=== PATIENT | male | born 1955 | race Caucasian/White ===

== ENCOUNTER 2018-06-29 08:59 | Day surgery (SDC) | payer BC, OTHER ==
[2018-06-27 15:19] LABS: EOSINOPHILS # (AUTO) 0.3 K/uL (0.0-0.4); EOSINOPHILS % (AUTO) 5.5 % (0.0-4.0); HEMATOCRIT 44.1 % (36-54); LYMPHOCYTES # (AUTO) 1.6 K/uL (1.0-5.5); LYMPHOCYTES % (AUTO) 28.8 % (20.5-51.5); MEAN CORPUSCULAR HEMOGLOBIN 31 pg (27-31); MEAN CORPUSCULAR HGB CONC 34 % (32-36); MEAN CORPUSCULAR VOLUME 90 fL (79.0-98.0); MONOCYTES # (AUTO) 0.4 K/uL (0.0-1.0); MONOCYTES % (AUTO) 7.5 % (1.7-9.3); PLATELET COUNT (AUTO) 255 K/uL (130-430); RED BLOOD CELL COUNT(AUTO) 4.91 MIL/uL (4.2-6.2); RED CELL DISTRIBUTION WIDTH 14.1 % (9.0-15.0); WHITE BLOOD COUNT (AUTO) 5.7 K/uL (4.8-10.8)
[2018-06-27 15:29] LABS: BASOPHILS % (AUTO) 0.7 % (0.0-2.0); NEUTROPHILS # (AUTO) 3.4 K/uL (1.8-7.7); NEUTROPHILS % (AUTO) 57.5 % (40.0-70.0)
[2018-06-27 15:36] LABS: BILIRUBIN,URINE NEGATIVE (NEGATIVE); BLOOD, URINE NEGATIVE (NEGATIVE); CLARITY/URINE CLEAR (CLEAR); COLOR,URINE YELLOW (YELLOW); GLUCOSE,URINE NEGATIVE (NEGATIVE); INR 0.9 (0.80-1.20); KETONES,URINE NEGATIVE (NEGATIVE); LEUKOCYTE ESTERASE ,URINE NEGATIVE (NEGATIVE); NITRITE, URINE NEGATIVE (NEGATIVE); PROTEIN URINE 2+ (NEGATIVE); PROTHROMBIN TIME 9.3 SECS (9.5-12.5)
[2018-06-27 15:39] LABS: ALBUMIN 3.9 g/dL (3.4-4.8); BACTERIA,URINE RARE /HPF (None Seen); CALCIUM 9.7 mg/dL (8.4-11.0); CREATININE 1.14 mg/dL (0.55-1.30); RBC,URINE 0-3 /HPF (0-3); TOTAL BILIRUBIN 0.9 mg/dL (0.0-1.0); WBC,URINE 0-3 /HPF (0-3)
[2018-06-27 15:45] LABS: POTASSIUM 3.8 mmol/L (3.5-5.1)
[~2018-06-29] VITALS: Ht 185.4 cm; Wt 111.1 kg
[~2018-06-29 08:59] MED LIST: ASPI-524 PO; FENO145T PO; FURO-149 PO; LOSA1TAB37 PO; OMEP20CA4 PO; SIMV40TA2 PO
[2018-06-29] MEDS ORDERED: ONDANSETRON HCL 4 MG/2 ML VIAL IVP PRN (10:15)
[2018-06-29] MEDS ORDERED: fentaNYL CITRATE/PF 100 MCG/2 ML AMP IVP PRN ×2 (10:15)
[2018-06-29] MEDS ORDERED: KETOROLAC TROMETHAMINE 30 MG VIAL IVP PRN (10:15)
[2018-06-29] MEDS ORDERED: LR 1,000 ML IV.SOLN IV ONE (11:15)
[2018-06-29] MEDS ORDERED: MIDAZOLAM HCL 5 MG/ML VIAL (VERSED) IV ONE (11:15)
[2018-06-29] MEDS ORDERED: PROPOFOL 200MG/ 20ML VIAL (DIPRIVAN) IV ONE (11:15)
[2018-06-29] MEDS ORDERED: LIDOCAINE 1% 10 MG/ML, 20 ML MDV ONE (11:15)
[2018-06-29] MEDS ORDERED: ONDANSETRON HCL 4 MG/2 ML VIAL ONE (11:15)
[2018-06-29] MEDS ORDERED: KETOROLAC TROMETHAMINE 30 MG VIAL ONE (11:15)
[2018-06-29] MEDS ORDERED: BUPIVACAINE /EPINEPHRINE/PF 0.25% 30 ML VIAL INJ ONE (11:15)
[2018-06-29] MEDS ORDERED: NS IRRIG SOLN 1000 ML IR ONE (11:15)
[2018-06-29 12:11] VITALS: BP_SYST 143
== END 2018-06-29 13:10 | disposition home or self-care (01) ==
LOC: SDS 08:59 → SMU 09:00 → SDS 13:10
PROVIDERS: ATTEND Orthopaedic Surgery
DX: M67.431 Ganglion, right wrist (principal); Z79.899 Other long term (current) drug therapy; Z79.82 Long term (current) use of aspirin; I10 Essential (primary) hypertension; Z79.01 Long term (current) use of anticoagulants
CPT/HCPCS: 25111; 36415; 71046; 80053; 81000; 85025; 85610; 85730; 88304; 93005; J1885; J2001; J2250; J2405; J2704; J3490; J7120

== ENCOUNTER 2019-10-16 09:52 | Inpatient (IN) | payer BC, SELFPAY ==
[~2019-10-16] VITALS: Ht 185.4 cm; Wt 113.4 kg
[2019-10-16 09:52] VITALS: BP_SYST 151
--- NOTE | 2019-10-16 09:52 | NUR ---
Placed in room 3. Placed on cardiac rehab nurse, blood pressure machine and pulse oximeter. To gown for exam. Side rails up. Report given to MOE Arceo.
--- NOTE | 2019-10-16 10:00 | NUR ---
Patient presented to ER C/O Chest pain. Patient A&Ox4, ambulatory to ER chest pain 3/, nausea, diarrhea, denies emesis. Patient states he has chest pain today, diarrhea x3 days and hx of ME 6 years ago. Patient placed on monitor, EKG completed at , chest shaved for EKG, placed on typesetting supervisor & pulse-ox monitor. will continue to monitor
--- NOTE | 2019-10-16 10:05 | NUR ---
ISHAN Griffin at bedside examining patient.
[2019-10-16] MEDS ORDERED: ONDANSETRON HCL 4 MG/2 ML VIAL IVP ONE (10:15)
[2019-10-16] MEDS ORDERED: LOPERAMIDE HCL 2 MG CAPSULE PO ONE (10:15)
[2019-10-16] MEDS ORDERED: MORPHINE 4 MG/ML INJ. SYRINGE IVP ONE (10:15)
[2019-10-16] MEDS ORDERED: ASPIRIN 325 MG TABLET (ECOTRIN) PO ONE ×2 (10:15→10:59)
[2019-10-16] MEDS ORDERED: NACL 0.9% 1,000 ML IV ONE ×2 (10:15→14:15)
[2019-10-16 11:01] LABS: ANION GAP 7 (5-15); CALCIUM 9.3 mg/dL (8.4-11.0); CHLORIDE 99 mmol/L (98-107); CREATININE 1.35 mg/dL (0.55-1.30); GLUCOSE 114 mg/dL (70-99); SODIUM SERUM 136 mmol/L (136-145); UREA NITROGEN, BLOOD 22 mg/dL (8-21)
[2019-10-16 11:03] LABS: BASOPHILS # (AUTO) 0.1 K/uL (0.0-0.2); BASOPHILS % (AUTO) 2.8 % (0.0-2.0); EOSINOPHILS # (AUTO) 0.2 K/uL (0.0-0.4); EOSINOPHILS % (AUTO) 4.2 % (0.0-4.0); HEMATOCRIT 46.2 % (36-54); HEMOGLOBIN 15.2 g/dL (14.0-18.0); LYMPHOCYTES # (AUTO) 1.7 K/uL (1.0-5.5); LYMPHOCYTES % (AUTO) 33.1 % (20.5-51.5); MEAN CORPUSCULAR HEMOGLOBIN 29 pg (27-31); MEAN CORPUSCULAR HGB CONC 33 % (32-36); MEAN CORPUSCULAR VOLUME 89 fL (79.0-98.0); MONOCYTES # (AUTO) 0.4 K/uL (0.0-1.0); MONOCYTES % (AUTO) 8.2 % (1.7-9.3); NEUTROPHILS # (AUTO) 2.7 K/uL (1.8-7.7); NEUTROPHILS % (AUTO) 51.7 % (40.0-70.0); PLATELET COUNT (AUTO) 248 K/uL (130-430); RED BLOOD CELL COUNT(AUTO) 5.19 MIL/uL (4.2-6.2); RED CELL DISTRIBUTION WIDTH 13.6 % (9.0-15.0); WHITE BLOOD COUNT (AUTO) 5.1 K/uL (4.8-10.8)
[2019-10-16 11:10] LABS: ALANINE AMINOTRANSFERASE 46 U/L (12-78); ASPARTATE AMINOTRANSFERASE 27 U/L (10-37); GFR AFRICAN AMERICAN 68 mL/min (>90); POTASSIUM 2.8 mmol/L (3.5-5.1); TOTAL BILIRUBIN 1.2 mg/dL (0.0-1.0)
[2019-10-16 11:11] LABS: ALBUMIN 3.6 g/dL (3.4-4.8); LIPASE 125 U/L (73-393)
[2019-10-16] MEDS ORDERED: POTASSIUM CHLORIDE 20 MEQ TAB.PRT.SR PO ONE (11:15)
--- NOTE | 2019-10-16 13:30 | NUR ---
Report to Malgorzata ROSA
[2019-10-16] MEDS ORDERED: MORPHINE 2 MG/ML INJ. SYRINGE IVP ONE (14:00)
--- NOTE | 2019-10-16 14:00 | NUR ---
provided hospital lunch tray, low sodium diet.
[2019-10-16] MEDS ORDERED: TOPXL100 PO (14:19)
[2019-10-16] MEDS ORDERED: LOSA1TAB43 PO (14:19)
[2019-10-16] MEDS ORDERED: SPIR25OR PO (14:19)
[2019-10-16] MEDS ORDERED: CLOP75TA32 PO (14:20)
--- NOTE | 2019-10-16 14:20 | NUR ---
Medication reconciliation completed with information provided by patient . Any prior medication reconciliation on file was reviewed and corrected.
--- NOTE | 2019-10-16 17:30 | NUR ---
PAGE TO DR. ROQUE, PT REQUESTING TYLENOL FOR HEADACHE
--- NOTE | 2019-10-16 17:40 | NUR ---
PROVIDED CARDIAC DIET TO PT
[2019-10-16] MEDS: ACETAMINOPHEN 325 MG TABLET PO PRN (18:20)
--- NOTE | 2019-10-16 18:45 | NUR ---
PT SITTING UP IN [facility], [place] AT BEDSIDE
--- NOTE | 2019-10-16 19:11 | NUR ---
REPORT TO ANDIE ROSA
--- NOTE | 2019-10-16 19:13 | NUR ---
Report received from MOE Arceo for continuation of care.
--- NOTE | 2019-10-16 19:15 | NUR ---
Pt resting, symmetric chest rise and fall. No complaints at this time.
[2019-10-16 19:25] LABS: BILIRUBIN,URINE NEGATIVE (NEGATIVE); BLOOD, URINE NEGATIVE (NEGATIVE); CLARITY/URINE CLEAR (CLEAR); COLOR,URINE YELLOW (YELLOW); GLUCOSE,URINE NEGATIVE (NEGATIVE); KETONES,URINE NEGATIVE (NEGATIVE); LEUKOCYTE ESTERASE ,URINE NEGATIVE (NEGATIVE); NITRITE, URINE NEGATIVE (NEGATIVE); PROTEIN URINE TRACE (NEGATIVE); UROBILINOGEN,URINE 0.2 (0.2-1.0)
[2019-10-16 19:55] LABS: BARBITURATE, URINE NEGATIVE (NEG <=200); BENZODIAZEPINE, URINE NEGATIVE (NEG <=150); CANNABINOID, URINE NEGATIVE (NEG <=50); COCAINE, URINE NEGATIVE (NEG <=150); METHAMPHETAMINES SCREEN,URINE NEGATIVE (NEG <=500); OPIATE, URINE POSITIVE (NEG <=100); PHENCYCLIDINE SCREEN,URINE NEGATIVE (NEG <=25); UR TRICYCLIC ANTIDEPRESSANTS NEGATIVE (NEG <=300); URINE AMPHETAMINE NEGATIVE (NEG <=500); URINE METHADONE NEGATIVE (NEG <=200); URINE OXYCODONE SCREEN NEGATIVE (NEG <=100); URINE PROPOXYPHENE SCREEN NEGATIVE (NEG <=300)
--- NOTE | 2019-10-16 19:56 | NUR ---
Patient will be admitted to care of . Admitted to telementary unit. Will go to room 118. Belongings list completed. Complete and up to date summary report printed. SBAR report to be given at bedside with opportunity for questions.
--- NOTE | 2019-10-16 20:00 | NUR ---
Initial note: Received report from candelaria ROSA. Patient is awake in bed. No acute distress. No complaints of pain or nausea. Even and unlabored respirations on room air. IV site noted to right AC, saline locked. Call light is with patient. Safety, fall, COVID iso precautions in place. Will continue with plan of care. Addendum: 10/18/19 at 0403 by Oscar Cleveland RN Please disregard above note, wrong date.
--- NOTE | 2019-10-16 20:02 | NUR ---
ADMISSION NOTE: Received patient from ER via silvia, received report from MOE CHAVES. Patient admitted with diagnosis of CHEST PAIN. Patient oriented to hospital routine, call light, toileting and safety-patient verbalized understanding.
[2019-10-16 20:20] VITALS: BP_SYST 142
--- NOTE | 2019-10-16 23:11 | NUR ---
Rounds: Patient is resting in bed. No acute distress. Even, unlabored breathing on room air. IV site to right AC saline locked. No complaints of pain or nausea. Call light with patient. Safety, fall, COVID iso precautions in place. Will continue to monitor.
[2019-10-16 23:22] VITALS: BP_SYST 133
--- NOTE | 2019-10-17 03:10 | NUR ---
Rounds: Patient is sleeping, resting comfortably in bed. No acute distress, tolerating room air with even and unlabored respirations. Call light is with patient. Will continue to monitor.
--- NOTE | 2019-10-17 06:08 | NUR ---
Closing note: Patient is asleep. Does not show any acute distress. Tolerating room air. Breathing is even, unlabored. IV site to right AC patent and intact. All needs met. Safety, fall, COVID iso precautions observed. Will endorse care to dayshift RN.
--- NOTE | 2019-10-17 07:30 | NUR ---
Initial note: Patient is alert, oriented x4,states having a little bit tight on his chest, no sign of distress.
[2019-10-17 07:48] VITALS: BP_SYST 138
--- NOTE | 2019-10-17 08:30 | NUR ---
Breakfast: Cardiac diet was served, and patient ate 100 % of the tray, no N/V.
[2019-10-17] MEDS: METOPROLOL SUCCINATE 50 MG TAB.SR.24H (TOPROL XL) PO SCH (08:31)
[2019-10-17] MEDS: ASPIRIN 81 MG TAB.CHEW PO SCH (08:31)
[2019-10-17] MEDS: PANTOPRAZOLE SODIUM 40 MG TAB PO SCH (08:31)
[2019-10-17] MEDS: CLOPIDOGREL BISULFATE 75 MG TABLET PO SCH (08:31)
--- NOTE | 2019-10-17 08:52 | NUR ---
Cardio round: Dr. Calloway is in the room making round. EKG is performed at the bedside, and seen by Dr. Calloway. The patient is stable per Cardiac stand point. Will continue monitor.
--- NOTE | 2019-10-17 10:00 | NUR ---
AM bath: Give patient a bed bath and linen change.
[2019-10-17 10:26] LABS: CHOLESTEROL 154 mg/dL (<200); HDL CHOLESTEROL 36 mg/dL (>45); LDL CHOLESTEROL 83 mg/dL (<100); TRIGLYCERIDES 248 mg/dL (30-150)
[2019-10-17 12:24] VITALS: BP_SYST 135
--- NOTE | 2019-10-17 14:00 | NUR ---
PM round: Patient is resting on bed comfortable, no sign of distress.
--- NOTE | 2019-10-17 16:00 | NUR ---
RN round: Patient is ambulates to the bathroom well by himself.
[2019-10-17 16:12] VITALS: BP_SYST 146
--- NOTE | 2019-10-17 18:32 | NUR ---
Closing note: Patient is stable no sign of distress, tolerates oral diet well, no N/V, no BM for day shift.
[2019-10-17 20:00] VITALS: BP_SYST 133
--- NOTE | 2019-10-17 20:00 | NUR ---
Initial note: Received report from dayshift RN. Patient is awake in bed. No acute distress. No complaints of pain or nausea. Even and unlabored respirations on room air. IV site noted to right AC, saline locked. Call light is with patient. Safety, fall, COVID iso precautions in place. Will continue with plan of care.
--- NOTE | 2019-10-17 22:46 | NUR ---
Pagemalia Marie s/w Tabitha
--- NOTE | 2019-10-17 22:55 | NUR ---
COVID result: Result of 10/16/19 COVID swab returned not detected. Result reported to Dr. Marie. ordered to change patient from observation to inpatient, and to continue COVID isolation. did not wish to D/C isolation or have a repeat swab performed at this time. Will continue monitoring.
[2019-10-18] MEDS: ACETAMINOPHEN 325 MG TABLET PO PRN (00:31)
--- NOTE | 2019-10-18 00:34 | NUR ---
Pain: Patient complaining of mild leg pain. Administered Tylenol PO as ordered. Education provided regarding indications and side effects, patient verbalized understanding. Call light is with patient. Will continue to monitor.
[2019-10-18 00:39] VITALS: BP_SYST 139
--- NOTE | 2019-10-18 07:40 | NUR ---
Opening Notes Patient is awake, alert and oriented x4. No resp distress noted. Breathing is even and unlabored. Patient denies any pain at this time. Patient is c/o gas and "bloating", has not had a BM since 10/15/19, per patient. IV site on right AC, 20 gauge intact, difficult to flush, will attempt later again, saline lock. No infiltration or irritation noted. Patient denies any NVD, abnormal bleeding, cough or chest pain. Patient was educated that he will have a 2D ECHO done today, aware and agreed. All needs met at this time. Safety and fall precautions in place. Call light within reach. Bed in lowest position, locked. Will continue to monitor.
[2019-10-18 08:00] VITALS: BP_SYST 144
[2019-10-18] MEDS: PANTOPRAZOLE SODIUM 40 MG TAB PO SCH (09:06)
[2019-10-18] MEDS: ASPIRIN 81 MG TAB.CHEW PO SCH (09:06)
[2019-10-18] MEDS: CLOPIDOGREL BISULFATE 75 MG TABLET PO SCH (09:07)
[2019-10-18] MEDS: METOPROLOL SUCCINATE 50 MG TAB.SR.24H (TOPROL XL) PO SCH (09:07)
--- NOTE | 2019-10-18 10:00 | NUR ---
Notes Patient is awake, alert and oriented x4. No resp distress noted. Breathing is even and unlabored. Patient denies any pain at this time. Patient informed about CT Scan x abdominal pain. Aware and agreed. All needs met at this time. Safety and fall precautions in place. Bed in lowest position, locked. Will continue to monitor.
--- NOTE | 2019-10-18 10:51 | NUR ---
Case mgt: S/W Dr. Marie at nursing station earlier re: OBS status, GI consult recommended by cardio--repeat labs--pt was changed to inpt status--Covid test was negative--I asked Dr. Marie if pt still needs isolation--will f/u for any dc planning needs-- RN
[2019-10-18] MEDS ORDERED: BISACODYL 5 MG TABLET.DR (DULCOLAX) PO ONE (11:00)
[2019-10-18] MEDS ORDERED: GOLYTELY / COLYTE SOLUTION 4 LITERS PO ONE (11:00)
[2019-10-18] MEDS ORDERED: DIATR MEGLU/DIATRIZ SOD 30 ML SOLUTION PO ONE (11:11)
--- NOTE | 2019-10-18 11:15 | NUR ---
CONSULTATION REASON FOR CONSULT: ABDOMINAL PAIN, DIARRHEA CONSULTING DR: NATALI UPTON ORDERED BY: JUDE [phone] PAGED Addendum: 10/18/19 at 1137 by Mahad Tucker PA/ TALKED TO IVANNA
[2019-10-18 12:00] VITALS: BP_SYST 136
[2019-10-18] MEDS ORDERED: BISACODYL 5 MG TABLET.DR (DULCOLAX) ONE (12:15)
--- NOTE | 2019-10-18 12:15 | NUR ---
Notes/Hold Lunch Patient is awake, alert and oriented x4. No resp distress noted. Breathing is even and unlabored. Holding patients lunch for CT scan, will give after. Denies any pain at this time. Safety and fall precautions in place. Bed in lowest position, locked. Will continue to monitor.
[2019-10-18] MEDS ORDERED: IOHEXOL 100 ML IV ONE (12:57)
--- NOTE | 2019-10-18 13:30 | NUR ---
CT SCAN Patient transferred to radiology for CT SCAN, stable. Picked up by Lalo. IV site on right FA, 20 gauge, flushing well. Will continue to monitor.
--- NOTE | 2019-10-18 14:00 | NUR ---
Dr. Carney's Orders for Colonoscopy/EGD for 10/19/19 () S/w Dr. Carney via telephone. Obtained new orders for patients procedure tomorrow. -NPO by midnight -Hold Plavix (last dose at 0830 today) -Goletly (4 liters)- drink 2 liters by 6pm today, drink remaining 2 liters at 3am on 10/19/2019 -Tap water enema @ 3am on 10/19/19 Patient informed. Aware and agreed. Will endorse tonmanny.
--- NOTE | 2019-10-18 14:00 | NUR ---
Notes/Goletly Patient was given his lunch. Remains on an all liquid diet. Instructed the patient that he will need to drink the Goletly for scheduled procedures tomorrow. Aware and agreed. Patient was also given hygiene products and cranberry juices. No resp distress. Breathing is even and unlabored. Denies any pain at this time. Will continue to monitor.
--- NOTE | 2019-10-18 15:15 | NUR ---
ERIS COVID 19 ISOLATION PRECAUTIONS Obtained new orders from Dr. Marie to discontinue isolation precautions. Patient was informed, aware.
[2019-10-18 15:38] LABS: INR 0.9 (0.80-1.20); PROTHROMBIN TIME 9.5 SECS (9.5-12.5)
[2019-10-18 16:00] VITALS: BP_SYST 155
--- NOTE | 2019-10-18 19:16 | NUR ---
Closing Notes Patient is awake, alert and oriented x4, sitting up in a chair next to the bed. No resp distress noted. Breathing is even and unlabored. Denies any pain at this time. Goletly is alf done (2 liters left). Patient is reporting having bowel movements. Will endorse to night nurse about next dose scheduled. IV site on right AC, 20 gauge intact, flushing well. Some redness noted, educated patient that we may restart another IV access later. Aware and agreed. All needs met at this time. Safety and fall precautions in place. Call light within reach. Bed in lowest position, locked. Will continue to monitor.
--- NOTE | 2019-10-18 19:30 | NUR ---
OPENING NOTES: Received SBAR report from day shift nurse. Patient is awake, alert and oriented x4. No S/S of acute distress was noted at this time. Breathing is even and unlabored. Patient denies any pain at this time. Patient c/o "bloating". IV site on right AC, 20 gauge is intact, flush well, saline lock. No infiltration or irritation noted. All needs met at this time. Safety and fall precautions in place. Call light within patient's reach. Bed in lowest position, locked. Will continue to monitor.
[2019-10-18 20:00] VITALS: BP_SYST 153
--- NOTE | 2019-10-19 | NUR ---
NPO: INSTRUCTED PATIENT TO FOLLOW NPO ORDER OF THIS TIME. PATIENT VERBALIZED UNDERSTANDING. NO S/S ACUTE DISTRESS WAS NOTED AT THIS TIME. ALL SAFETY AND FALL PRECAUTION ARE IN PLACED. CALL LIGHT WITHIN PATIENT'S REACH. WILL CONTINUE TO MONITOR.
[2019-10-19 01:15] VITALS: BP_SYST 138
--- NOTE | 2019-10-19 04:00 | NUR ---
TAP WATER ENEMA: PATIENT GIVEN 4 TIMES TAP WATER ENEMAS. PATIENT TOLERATED WELL. BM IS CLEAR. PATIENT COMPLETED ALMOST ENTIRE GOLYTELY. NO S/S OF DISTRESS AT THIS TIME. BED IS IN THE LOWEST POSITION, CALL LIGHT IS WITHIN PATIENT'S REACH, 2 BEDSIDES RAIL ARE UP. WILL CONTINUE TO MONITOR.
--- NOTE | 2019-10-19 06:20 | NUR ---
CLOSING NOTE: PATIENT IS RESTING IN BED. DENIES ANY PAIN OR DISCOMFORT. BREATHING IS UNLABORED ON RA. IV FLUSHES WELL. NO S/S ACUTE DISTRESS. BED IS IN LOWEST POSITION. CALL LIGHT WITHIN PATIENT'S REACH.WILL ENDORSE TO DAY SHIFT RN.
[2019-10-19] MEDS ORDERED: SIMETHICONE 40 MG/0.6 ML ML ONE (07:04)
[2019-10-19] MEDS ORDERED: BENZOCAINE 20% 0.5mL UD SPRAY MM ONE ×2 (07:04→07:07)
[2019-10-19] MEDS ORDERED: fentaNYL CITRATE/PF 100 MCG/2 ML AMP ONE (07:05)
[2019-10-19] MEDS ORDERED: MIDAZOLAM HCL 5 MG/5 ML VIAL ONE (07:05)
[2019-10-19 07:30] VITALS: BP_SYST 154
--- NOTE | 2019-10-19 07:30 | NUR ---
opening notes pt prepped for egd/conoscopy, no c/o pain, no sob, vitals wnl. no fever.
--- NOTE | 2019-10-19 07:45 | NUR ---
pt taken down to gi lab.
[2019-10-19] MEDS ORDERED: MEPERIDINE HCL/PF 100 MG/ML AMP ONE (08:22)
[2019-10-19 09:45] VITALS: BP_SYST 150
--- NOTE | 2019-10-19 09:45 | NUR ---
pt came back from gi lab, [facility].
--- NOTE | 2019-10-19 10:20 | NUR ---
pt in bed, resting, no c/o pain, no sob. bp wnl. pt provided with ice water, jello and apple juice, informed him that md order soft diet for lunch. will cont to monitor.
[2019-10-19] MEDS ORDERED: SUCRALFATE 1 GM TABLET PO SCH (11:30)
--- NOTE | 2019-10-19 11:44 | NUR ---
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
[2019-10-19] MEDS: PANTOPRAZOLE SODIUM 40 MG TAB PO SCH (11:49)
[2019-10-19] MEDS: ASPIRIN 81 MG TAB.CHEW PO SCH (11:49)
[2019-10-19] MEDS: METOPROLOL SUCCINATE 50 MG TAB.SR.24H (TOPROL XL) PO SCH (11:49)
--- NOTE | 2019-10-19 11:59 | NUR ---
PT IS NOW MORE ALERT AND AWAKE, PT GIVEN HIS DAILY MEDICATIONS. VITALS WNL. NO C/O PAIN. NO SOB. INFORMED PT THAT THERE IS A DC HOME ORDER BUT NEEDS FINAL CLEARANCE FROM HIS GI DOCTOR. PT VERBALIZED UNDERSTANDING.
[2019-10-19 12:00] VITALS: BP_SYST 143
--- NOTE | 2019-10-19 12:01 | NUR ---
CURT AARON, DR Patricia UPTON WAS CALLED, RE: CLEARANCE TO DC PT HOME. SPOKE TO CARLINE.
--- NOTE | 2019-10-19 12:11 | NUR ---
THIS RN SPOKE WITH DR Abdiaziz UPTON. CLEARED PT TO GO HOME. PT TO FOLLOW UP WITH MD IN 2 WEEKS.
[2019-10-19 13:17] VITALS: BP_SYST 143
--- NOTE | 2019-10-19 15:14 | NUR ---
D/C Patient Patient given medication reconciliation form and D/C instructions. Exit Care provided. Patient verbalized understanding. MD discussed with patient the results and treatment provided. Ambulatory with steady gait for discharge to home. Patient in stable condition, ID band removed. IV catheter removed, intact and dressing applied, no active bleeding. NO Rx given. Patient to continue home medications and follow up with GI and Cadiologist. Patient educated on pain management. All belongings sent with patient.
== END 2019-10-19 14:40 | disposition home or self-care (01) | DRG 392 ==
LOC: SED 09:52 → EEVIPCON 09:52 → OBSVTOIN 14:07 → STU 14:07
PROVIDERS: ADMIT Internal Medicine Hospice and Palliative Medicine; ATTEND Internal Medicine Hospice and Palliative Medicine
PROC: 0DBL8ZX Excision of Transverse Colon, Via Natural or Artificial Opening Endoscopic, Diagnostic (ICD-10-PCS; 2019-10-19)
PROC: 0DBN8ZX Excision of Sigmoid Colon, Via Natural or Artificial Opening Endoscopic, Diagnostic (ICD-10-PCS; 2019-10-19)
PROC: 0DBP8ZX Excision of Rectum, Via Natural or Artificial Opening Endoscopic, Diagnostic (ICD-10-PCS; 2019-10-19)
PROC: 0DBB8ZX Excision of Ileum, Via Natural or Artificial Opening Endoscopic, Diagnostic (ICD-10-PCS; 2019-10-19)
PROC: 0DBM8ZX Excision of Descending Colon, Via Natural or Artificial Opening Endoscopic, Diagnostic (ICD-10-PCS; 2019-10-19)
PROC: 0DB78ZX Excision of Stomach, Pylorus, Via Natural or Artificial Opening Endoscopic, Diagnostic (ICD-10-PCS; 2019-10-19)
PROC: 0DB98ZX Excision of Duodenum, Via Natural or Artificial Opening Endoscopic, Diagnostic (ICD-10-PCS; principal; 2019-10-19 08:10)
PROC: 0DBK8ZX Excision of Ascending Colon, Via Natural or Artificial Opening Endoscopic, Diagnostic (ICD-10-PCS; 2019-10-19 08:10)
DX: K52.9 Noninfective gastroenteritis and colitis, unspecified (principal); K29.80 Duodenitis without bleeding; K29.70 Gastritis, unspecified, without bleeding; K62.89 Other specified diseases of anus and rectum; Z20.828 Contact with and (suspected) exposure to other viral communicable diseases; I10 Essential (primary) hypertension; E78.00 Pure hypercholesterolemia, unspecified; E78.5 Hyperlipidemia, unspecified; K21.9 Gastro-esophageal reflux disease without esophagitis; I25.10 Atherosclerotic heart disease of native coronary artery without angina pectoris; E66.9 Obesity, unspecified; Z68.33 Body mass index [BMI] 33.0-33.9, adult; I25.2 Old myocardial infarction; Z79.899 Other long term (current) drug therapy; Z79.82 Long term (current) use of aspirin; Z95.818 Presence of other cardiac implants and grafts; Z82.49 Family history of ischemic heart disease and other diseases of the circulatory system; Z95.5 Presence of coronary angioplasty implant and graft
CPT/HCPCS: 36415; 71045; 80053; 80061; 80307; 81003; 83690-TC; 83880; 84484; 85025; 85379; 85610-TC; 87045-TC; 87081; 87177; 88305; 88312; 88313; 89055; 93005; 93306; 99285; G0378; J2175; J2250; J2270; J2405; J3010; J7030; Q9964; Q9967; U0003-CS